=== PATIENT | male | born 1950 | race African-American/Black ===

== ENCOUNTER 2020-12-26 23:27 | Inpatient (IN) | payer OTHER ==
[~2020-12-26] VITALS: Ht 185.4 cm; Wt 67.6 kg
[2020-12-27] VITALS (8 sets, daily range): BP systolic 113–131; BP diastolic 48–65
[2020-12-27] MEDS ORDERED: SODIUM CHLORIDE 0.9% 1,000 ML IV ONE
[2020-12-27 00:08] LABS: BASOPHILS % 0.5 % (0.0-2.0); LYMPHOCYTES % 8.3 % (20.0-50.0); MEAN CORPUSCULAR VOLUME 97.6 fL (80.0-94.0); MEAN PLATELET VOLUME 9.1 fl (7.4-10.4); NEUTROPHILS % 85.2 % (40.0-76.0); PLATELET 150 x1000/uL (130-400); RED BLOOD CELL COUNT 1.62 mill/uL (4.7-6.1); RED CELL DISTRIBUTION WIDTH 16.9 % (11.6-14.6)
[2020-12-27 00:14] LABS: CHLORIDE 106 mEq/L (98-107)
[2020-12-27 00:16] LABS: ETHANOL BLOOD < 10 mg/dL; INR 1.1; PROTHROMBIN TIME 12.2 sec (9.6-11.0)
[2020-12-27 00:34] LABS: HEMATOCRIT. 15.8 % (42.0-52.0)
[2020-12-27 00:35] LABS: HEMOGLOBIN. 5.2 g/dL (14.0-18.0)
[2020-12-27] MEDS ORDERED: PANTOPRAZOLE SODIUM 40 MG/VIAL IV ONE (01:00)
[2020-12-27 03:51] LABS: CLARITY URINE CLEAR (CLEAR); COLOR URINE YELLOW (YELLOW); KETONES URINE NEGATIVE (NEGATIVE); LEUKOCYTE ESTERASE URINE NEGATIVE (NEGATIVE); NITRITE URINE NEGATIVE (NEGATIVE); OCCULT BLOOD URINE NEGATIVE (NEGATIVE); PROTEIN URINE 3+ (NEGATIVE); SPECIFIC GRAVITY URINE 1.015 (1.005-1.030); UROBILINOGEN URINE 0.2 E.U./dL (0.2-1.0)
[2020-12-27 04:01] LABS: *BARBITURATES SCREEN URINE NEGATIVE (NEGATIVE)
[2020-12-27 04:02] LABS: *AMPHETAMINES SCREEN URINE NEGATIVE (NEGATIVE); *BENZODIAZEPINES SCREEN URINE NEGATIVE (NEGATIVE); *COCAINE SCREEN URINE NEGATIVE (NEGATIVE); METHADONE URINE SCREEN NEGATIVE (NEGATIVE); OPIATES URINE SCREEN NEGATIVE (NEGATIVE)
[2020-12-27 04:03] LABS: CANNABINOID URINE SCREEN NEGATIVE (NEGATIVE); PHENCYCLIDINE URINE SCREEN NEGATIVE (NEGATIVE)
[2020-12-27 07:46] LABS: BASOPHILS % 0.2 % (0.0-2.0); LYMPHOCYTES % 14.2 % (20.0-50.0); MEAN CORPUSCULAR HEMOGLOBIN 31.7 pg (28.0-32.0); MEAN CORPUSCULAR VOLUME 95.3 fL (80.0-94.0); MEAN PLATELET VOLUME 8.6 fl (7.4-10.4); MONOCYTES % 11.9 % (2.0-8.0); NEUTROPHILS % 73.7 % (40.0-76.0); PLATELET 95 x1000/uL (130-400); RED BLOOD CELL COUNT 1.76 mill/uL (4.7-6.1); RED CELL DISTRIBUTION WIDTH 18.5 % (11.6-14.6)
[2020-12-27 07:55] LABS: HEMOGLOBIN. 5.6 g/dL (14.0-18.0)
[2020-12-27 07:56] LABS: HEMATOCRIT. 16.8 % (42.0-52.0)
[2020-12-27] MEDS ORDERED: ACETAMINOPHEN 325MG TABLET PO PRN (10:15)
[2020-12-27] MEDS: ONDANSETRON HCL 4MG/2ML INJ IV PRN (15:21)
[2020-12-27] MEDS: PANTOPRAZOLE SODIUM 40 MG/VIAL IV SCH (18:24)
[2020-12-27 20:21] LABS: MEAN CORPUSCULAR VOLUME 95.4 fL (80.0-94.0); PLATELET 88 x1000/uL (130-400); RED BLOOD CELL COUNT 1.65 mill/uL (4.7-6.1); RED CELL DISTRIBUTION WIDTH 16.3 % (11.6-14.6)
[2020-12-27 20:29] LABS: HEMOGLOBIN 5.3 g/dL (14.0-18.0)
[2020-12-27 20:30] LABS: HEMATOCRIT 15.7 % (42.0-52.0)
[2020-12-27] MEDS ORDERED: SODIUM BICARBONATE 8.4% 1 MEQ/ML 50ML SYR IV NR (20:30)
[2020-12-27] MEDS ORDERED: EPOETIN ALFA-EPBX 10,000 UNIT/ML VIAL SUBCUT NR (21:00)
[2020-12-27] MEDS: SODIUM POLYSTYRENE SULFONATE 15 G/60 ML BOT PO NR ×2 (21:00→23:03)
[2020-12-27] MEDS: CITRIC ACID/SODIUM CITRATE SOLN 30ML UDC PO SCH (23:03)
[2020-12-28] VITALS (13 sets, daily range): BP systolic 116–160; BP diastolic 55–68
[2020-12-28] MEDS: ONDANSETRON HCL 4MG/2ML INJ IV PRN (01:46)
[2020-12-28] MEDS: SODIUM CHLORIDE 0.9% 1,000 ML IV SCH ×2 (08:28→11:12)
[2020-12-28] MEDS: PANTOPRAZOLE SODIUM 40 MG/VIAL IV SCH ×2 (08:50→17:11)
[2020-12-28] MEDS: CITRIC ACID/SODIUM CITRATE SOLN 30ML UDC PO SCH ×3 (08:51→17:11)
[2020-12-28 08:56] LABS: BASOPHILS % 0.3 % (0.0-2.0); EOSINOPHILS % 0.1 % (0.0-5.0); HEMATOCRIT. 22.4 % (42.0-52.0); HEMOGLOBIN. 7.6 g/dL (14.0-18.0); LYMPHOCYTES % 15.6 % (20.0-50.0); MEAN CORPUSCULAR HEMOGLOBIN 31.7 pg (28.0-32.0); MEAN CORPUSCULAR VOLUME 93.6 fL (80.0-94.0); MEAN PLATELET VOLUME 8.6 fl (7.4-10.4); MONOCYTES % 13.3 % (2.0-8.0); NEUTROPHILS % 70.7 % (40.0-76.0); PLATELET 85 x1000/uL (130-400); RED BLOOD CELL COUNT 2.39 mill/uL (4.7-6.1); RED CELL DISTRIBUTION WIDTH 14.3 % (11.6-14.6)
[2020-12-28] MEDS ORDERED: MAGNESIUM 2 G PREMIX 50 ML IV NR (11:00)
== END 2020-12-28 22:25 | disposition short-term general hospital (02) | DRG 377 ==
LOC: ER 23:27 → 6WST 12-27 07:06 → ENRESERV 12-27 07:59 → 6WST 12-28 13:57
PROVIDERS: ADMIT Internal Medicine; ATTEND Internal Medicine
PROC: 30233N1 Transfusion of Nonautologous Red Blood Cells into Peripheral Vein, Percutaneous Approach (ICD-10-PCS; principal; 2020-12-27)
DX: K92.2 Gastrointestinal hemorrhage, unspecified (principal); E43 Unspecified severe protein-calorie malnutrition; I12.0 Hypertensive chronic kidney disease with stage 5 chronic kidney disease or end stage renal disease; N17.9 Acute kidney failure, unspecified; I31.3 Pericardial effusion (noninflammatory); J90 Pleural effusion, not elsewhere classified; Z68.1 Body mass index [BMI] 19.9 or less, adult; N18.5 Chronic kidney disease, stage 5; D53.9 Nutritional anemia, unspecified; R73.9 Hyperglycemia, unspecified; Z20.822 Contact with and (suspected) exposure to COVID-19; D69.6 Thrombocytopenia, unspecified; D70.9 Neutropenia, unspecified; E78.5 Hyperlipidemia, unspecified; D17.71 Benign lipomatous neoplasm of kidney; F10.20 Alcohol dependence, uncomplicated; K76.0 Fatty (change of) liver, not elsewhere classified; Z82.49 Family history of ischemic heart disease and other diseases of the circulatory system; Z85.819 Personal history of malignant neoplasm of unspecified site of lip, oral cavity, and pharynx; Z87.891 Personal history of nicotine dependence
CPT/HCPCS: 36415; 76700; 80048; 80053; 80305; 80320; 81003; 83735; 84100; 85025; 85027; 86850; 86900; 86920; 87426; 93005; 99285; C9113; J0885; J2405; J3475; J3490; J7030; P9016; G0480